=== PATIENT | male | born 1990 | race Caucasian/White ===

== ENCOUNTER 2019-05-21 19:28 | Emergency (ER) | payer SELFPAY ==
[~2019-05-21] VITALS: Ht 175.3 cm; Wt 73.9 kg
[2019-05-21 19:50] VITALS: BP 148/70
--- NOTE | 2019-05-21 19:50 | NUR ---
PT AMBULATED TO BED #1
[2019-05-21] MEDS ORDERED: IBUPROFEN 600 MG TAB PO ONE (20:20)
--- NOTE | 2019-05-21 20:26 | NUR ---
28 Y/O C/O BODY ACHES X 1 WEEK. RATES PAIN 10/10 AND DESCRIBES IT ACHING ALL OVER BODY. LUNG SOUNDS CLEAR ALL THROUGHOUT. NO RESP DISTRESS NOTED.A & O X4. STEADY GAIT. VSS. NKA. NO PMH.
[2019-05-21 20:28] VITALS: BP 138/68
--- NOTE | 2019-05-21 20:29 | NUR ---
Patient discharged with v/s stable. Written and verbal after care instructions given and explained. Patient verbalized understanding. Ambulatory with steady gait. All questions addressed prior to discharge. Advised to follow up with PMD.
--- NOTE | 2019-05-21 20:30 | NUR ---
PATIENT WAITING IN LOBBY FOR MED RE-EVALUATION.
== END 2019-05-21 20:29 | disposition home or self-care (01) ==
LOC: MED 19:28
DX: R50.9 Fever, unspecified (principal); R05 Cough; M79.10 Myalgia, unspecified site
CPT/HCPCS: 99283